=== PATIENT | female | born 1980 | race Caucasian/White ===

== ENCOUNTER 2018-08-29 07:11 | Inpatient (IN) ==
[2018-08-29] MEDS ORDERED: KETOROLAC TROMETHAMINE 15 MG/ML VIAL IV STA (07:38)
[2018-08-29] MEDS ORDERED: ONDANSETRON INJ 2 MG/ML 2 ML VIAL IV STA (07:38)
[2018-08-29] MEDS ORDERED: SODIUM CHLORIDE 0.9% 1000ML 1,000 ML IV ONE ×2 (07:38→09:37)
--- NOTE | 2018-08-29 07:52 | Emergency Department Note ---
ED Provider Note CHIEF COMPLAINT: Epigastric/upper abdominal pain, nausea and vomiting HISTORY OF PRESENTING ILLNESS: This is a 37-year-old female who presents to the emergency department via EMS with concern for right upper quadrant and epigastric pain, nausea and vomiting that started yesterday. Patient states she began with gradual onset of the abdominal pain that has gotten progressively worse, is constant and radiates into her mid back, and she rates as 10/10. She developed nausea with vomiting during the night, states she has vomited numerous times and is vomiting up yellow slime. She denies any bloody or coffee-ground emesis. She denies any diarrhea. She denies any recent fevers or chills. She received 100 mcg of fentanyl and 4 mg of Zofran IV, and states that she has not had any improvement in her symptoms with this. She reports a history of "gallbladder problems and pancreatitis" in the past. She denies alcohol use. She is on Suboxone for history of opioid use. She denies any other symptoms of chest pain, shortness of breath, dizziness or syncope, back pain, headaches, vision changes, neck pain, urinary complaints, or unusual rash. REVIEW OF SYSTEMS: A complete 10 point review of systems was reviewed with the patient with pertinent positives and negatives as per history of present illness. All else were negative. PAST MEDICAL HISTORY: Hypertension, opioid use on Suboxone SOCIAL HISTORY: Lives at home, she is a current everyday smoker, denies alcohol ALLERGIES: No known allergies PHYSICAL EXAM: CONSTITUTIONAL: Pleasant and cooperative. Nontoxic-appearing and in no acute distress, but appears uncomfortable. Moderately dehydrated. HEENT: Normocephalic, atraumatic. PERRL, EOMI. Pharynx normal. Dry mucous mem ories. NECK: Supple, full active range of motion without discomfort. RESPIRATORY: Clear to auscultation bilaterally with no wheezing, crackles, rhonchi or stridor. Equal expansion bilaterally. CARDIOVASCULAR: Regular rate and rhythm with no murmurs, rubs or gallops. Normal peripheral perfusion. No edema. GASTROINTESTINAL: Diffuse tenderness through the upper abdomen, most tender in the epigastric region. No rebound tenderness or guarding. Soft and nondistended. No palpable masses or HSM. Bowel sounds present in all quadrants. No CVA tenderness bilaterally. MUSCULOSKELETAL: Full range of motion of all joints without discomfort. INTEGUMENTARY: No rash or other significant dermatologic conditions noted. NEUROLOGIC: Alert and oriented X 4 with normal affect. Normal strength and sensation in all 4 extremities. Normal speech. Normal gait observed. ED COURSE AND MEDICAL DECISION MAKING: CC: Patient presenting with complaint of epigastric/upper abdominal pain, nausea and vomiting DIFFERENTIAL DIAGNOSIS: Includes, but not limited to gastroenteritis, gastritis, peptic ulcer disease, cholecystitis, cholelithiasis, pancreatitis, dehydration, electrolyte abnormality INTERPRETATION OF LABS: No leukocytosis, no anemia, normal platelets, no significant electrolyte abnormalities, normal renal function, normal liver enzymes, significantly elevated lipase. Serum hCG negative. IMAGING: US gallbladder CLINICAL HISTORY: Right upper quadrant pain. Nausea, vomiting. COMPARISON STUDY: No previous studies for comparison. FINDINGS: The pancreatic duct is at the upper limits of normal measuring 3 mm. The pancreatic masses are visualized. No hepatic masses are visualized. There is no right-sided hydronephrosis. No gallstones are visualized. There is no gallbladder wall thickening, and no pericholecystic fluid. There is no ductal dilatation. The common bile duct measures 6 mm. There is slight increase in hepatic echogenicity. Hepatic steatosis must be considered. IMPRESSION: 1. Sonographically normal gallbladder. No ductal dilatation 2. Slight increase in hepatic echogenicity, a finding raising the possibility of hepatic steatosis MEDICATION RECONCILIATION: I attest that I have personally reviewed the patient's current medication list. INITIAL VITAL SIGNS REVIEW: I reviewed the patient's initial vital signs and interpret them as follows: T: Afebrile; BP: Normotensive; HR: Mildly tachycardic; RR: Within normal limits; Pulse Ox: Within normal limits on room air. Blood pressure screening: The patient was found to have normal blood pressure on screening and does not require follow-up for repeat blood pressure check. MDM SUMMARY: Patient was evaluated at bedside, history and physical exam performed. Patient is alert and oriented, in no acute distress, but appears uncomfortable, resting in the stretcher. She is afebrile and nontoxic-appearing, but does appear to be moderately dehydrated and is mildly tachycardic. She is tenderness throughout the upper abdomen, most tender in the epigastric region. No acute abdomen. Orders were placed at bedside for labs, IV fluid bolus for hydration, IV Toradol for pain, IV Zofran for nausea, right upper quadrant ultrasound to evaluate for gallbladder disease. Patient discussed with Dr. Fuller, who agrees with my assessment, plan, and disposition. Labs and imaging reviewed as above, labs are fairly unremarkable, but she does have significantly elevated lipase concerning for acute pancreatitis. Ultr asound of the gallbladder does not show any evidence of cholecystitis or cholelithiasis. Patient reassessed multiple times throughout ED stay, she has remained hemodynamically stable, but continues to complain of severe pain and nausea and has required numerous doses of IV pain medications and antiemetics. She has not been able to tolerate fluids. I discussed the option of admission with the patient, she states that she does not feel that she can go home like this. I spoke on the phone with Dr. Hawk, [facility] Hospitalist, who agrees to evaluate the patient for admission. Patient was updated on all results and plan for admission, she verbalized understanding and was agreeable to this plan. The patient was stable at time of admission. The chart was completed utilizing [employer] Speech voice recognition software. Grammatical errors, random word insertions, pronoun errors, and incomplete sentences are an occasional consequence of this system due to software limitations, ambient noise, and hardware issues. Any formal questions or concerns about the content, text, or information contained within the body of this dictation should be directly addressed to the nurse practitioner for clarification. 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 Beliefs That Will Affect Care: None Current Living Situation: Spouse Other Information That Helps Us Care for You: No Feels Safe at Home: Yes Safety Concerns: Feels Safe At This Time Smoking Status: Current every day smoker Tobacco Type: cigarettes Do You Dip or Chew Tobacco: No Second Hand Exposure: No Tobacco Cessation Education Requested by Patient: No Hx Alcohol Use: No Hx Substance Use: Yes substance use type: opiates Substance Use Type Other:: on suboxone therapy Last Used Substance: Unknown Results & Data Vital Signs Vital Signs - 24 hr 08/29/18 07:20 08/29/18 09:23 Temperature 36.8 C Temperature Source Oral Sepsis Recent Fever Within 48 Hours No Sepsis New/Unexplained Change in Mental Status No Sepsis Action Taken by Nursing No Action Required Pulse Rate 98 H Pulse Rate [Left] 78 Pulse Rhythm Regular Pulse Rhythm [Left] Regular Pulse Strength Normal Pulse Strength [Left] Normal Respiratory Rate 18 18 Respiratory Effort / Characteristics Non-Labored Spontaneous Non-Labored Spontaneous Respiratory Depth Normal Normal Respiratory Pattern Regular Regular Blood Pressure 110/80 Blood Pressure [Left Arm] 95/81 L Blood Pressure Mean 90 Blood Pressure Mean [Left Arm] 85 Blood Pressure Position Lying Blood Pressure Position [Left Arm] Lying Pulse Oximetry 99 98 Oxygen Delivery Method Room Air Room Air Laboratory Data Result diagrams: 08/29/18 08:09 08/29/18 08:09 Lab Results 08/29/18 08/29/18 08/29/18 Range/Units 08:09 08:09 08:09 WBC 6.60 (4.8-10.8) K/uL RBC 4.10 L (4.2-5.4) M/uL Hgb 13.8 (12.0-16.0) g/dL Hct 40.4 (37-47) % MCV 98.5 (80-100) fL MCH 33.7 (25-34) pg MCHC 34.2 (32-36) g/dL RDW Std Deviation 45.3 (36.4-46.3) fL RDW Coeff of Ishmael 12.6 (11.5-14.5) % Plt Count 195 (130-400) K/uL MPV 8.9 (7.4-10.4) fL Immature Gran % (Auto) 0.0 % Neut % (Auto) 75.2 % Lymph % (Auto) 12.0 % [place] % (Auto) 12.4 % Eos % (Auto) 0.2 % Baso % (Auto) 0.2 % Immature Gran # (Auto) 0.00 (0.00-0.02) K/uL Neut # (Auto) 4.97 (1.4-6.5) K/uL Lymph # (Auto) 0.79 L (1.2-3.4) K/uL [place] # (Auto) 0.82 H (0.11-0.59) K/uL Eos # (Auto) 0.01 (0-0.5) K/uL Baso # (Auto) 0.01 (0-0.2) K/uL PT (9.0-12.0) Seconds INR (0.9-1.1) APTT (21.0-31.0) Seconds PTT Ratio Sodium 137 (136-145) mmol/L Potassium 3.5 (3.5-5.1) mmol/L Chloride 102 (98-107) mmol/L Carbon Dioxide 22 (21-32) mmol/L Anion Gap 12.0 H (3-11) BUN 9 (7-18) mg/dl Creatinine 0.58 L (0.6-1.2) mg/dl Est Cr Clr Drug Dosing 148.9 ml/min Est GFR ( Amer) 135.5 Est GFR (Non-Af Amer) 116.9 BUN/Creatinine Ratio 14.7 (10-20) Glucose 131 H (70-99) mg/dl Calcium 10.0 (8.5-10.1) mg/dl Total Bilirubin 0.6 (0.2-1) mg/dl AST 77 H (15-37) U/L ALT 57 (12-78) U/L Alkaline Phosphatase 108 (45-117) U/L Total Protein 7.5 (6.4-8.2) gm/dl Albumin 4.0 (3.4-5.0) gm/dl Globulin 3.5 (2.5-4.0) gm/dl Albumin/Globulin Ratio 1.1 (0.9-2) Triglycerides (0-150) mg/dl Lipase 3774 H (73-393) U/L HCG, Qual Negative (Negative) 08/29/18 08/29/18 Range/Units 08:09 08:12 WBC (4.8-10.8) K/uL RBC (4.2-5.4) M/uL Hgb (12.0-16.0) g/dL Hct (37-47) % MCV (80-100) fL MCH (25-34) pg MCHC (32-36) g/dL RDW Std Deviation (36.4-46.3) fL RDW Coeff of Ishmael (11.5-14.5) % Plt Count (130-400) K/uL MPV (7.4-10.4) fL Immature Gran % (Auto) % Neut % (Auto) % Lymph % (Auto) % [place] % (Auto) % Eos % (Auto) % Baso % (Auto) % Immature Gran # (Auto) (0.00-0.02) K/uL Neut # (Auto) (1.4-6.5) K/uL Lymph # (Auto) (1.2-3.4) K/uL [place] # (Auto) (0.11-0.59) K/uL Eos # (Auto) (0-0.5) K/uL Baso # (Auto) (0-0.2) K/uL PT 11.1 (9.0-12.0) Seconds INR 1.1 (0.9-1.1) APTT 26.0 (21.0-31.0) Seconds PTT Ratio 1.0 Sodium (136-145) mmol/L Potassium (3.5-5.1) mmol/L Chloride (98-107) mmol/L Carbon Dioxide (21-32) mmol/L Anion Gap (3-11) BUN (7-18) mg/dl Creatinine (0.6-1.2) mg/dl Est Cr Clr Drug Dosing ml/min Est GFR ( Amer) Est GFR (Non-Af Amer) BUN/Creatinine Ratio (10-20) Glucose (70-99) mg/dl Calcium (8.5-10.1) mg/dl Total Bilirubin (0.2-1) mg/dl AST (15-37) U/L ALT (12-78) U/L Alkaline Phosphatase (45-117) U/L Total Protein (6.4-8.2) gm/dl Albumin (3.4-5.0) gm/dl Globulin (2.5-4.0) gm/dl Albumin/Globulin Ratio (0.9-2) Triglycerides 130 (0-150) mg/dl Lipase (73-393) U/L HCG, Qual (Negative) Administered Medications Dextrose/Lactated Ringer's (D5w And Lactated Ringers) 1,000 mls @ 150 mls/hr IV .Q6H40M DONALDO Stop: 08/30/18 21:20 Last Admin: 08/29/18 12:49 Dose: 150 mls/hr Documented by: [id number] Discontinued Medications Hydromorphone HCl (Dilaudid) Confirm Administered Dose 1 mg .ROUTE .STK-MED ONE Stop: 08/29/18 12:31 Last Admin: 08/29/18 12:33 Dose: 1 mg Documented by: [id number] Sodium Chloride (Nss 1000ml) 1,000 mls @ 999 mls/hr IV .Q1H1M ONE Stop: 08/29/18 08:38 Last Infusion: 08/29/18 09:06 Dose: 0 mls/hr Documented by: [id number] Admin: 08/29/18 07:58 Dose: 999 mls/hr Documented by: [id number] Promethazine HCl (Phenergan) 25 mg in 51 mls @ 204 mls/hr IV NOW STA Stop: 08/29/18 09:51 Last Infusion: 08/29/18 10:03 Dose: 0 mls/hr Documented by: [id number] Admin: 08/29/18 09:48 Dose: 204 mls/hr Documented by: [id number] Sodium Chloride (Nss 1000ml) 1,000 mls @ 999 mls/hr IV .Q1H1M ONE Stop: 08/29/18 10:37 Last Infusion: 08/29/18 10:57 Dose: 0 mls/hr Documented by: [id number] Admin: 08/29/18 09:47 Dose: 999 mls/hr Documented by: [id number] Ketorolac Tromethamine (Toradol) 15 mg IV NOW STA Stop: 08/29/18 07:39 Last Admin: 08/29/18 07:59 Dose: 15 mg Documented by: [id number] Morphine Sulfate (Morphine Sulfate) 6 mg IV NOW STA Stop: 08/29/18 09:38 Last Admin: 08/29/18 09:47 Dose: 6 mg Documented by: [id number] Ondansetron HCl (Zofran) 4 mg IV NOW STA Stop: 08/29/18 07:39 Last Admin: 08/29/18 07:59 Dose: 4 mg Documented by: [id number] Ondansetron HCl (Zofran) Confirm Administered Dose 4 mg .ROUTE .STK-MED ONE Stop: 08/29/18 12:32 Last Admin: 08/29/18 12:34 Dose: 4 mg Documented by: [id number] Discharge Plan Visit Data *Final* Discharge Date/Time: 08/29/18 11:55 Chief Complaint: Abdominal Pain Stated Complaint: abd pain ED Provider: Alex Fuller ED Midlevel Provider: Katerina Olivares Discharge Problem: Pancreatitis Patient Disposition: Admitted As Inpatient Condition: Good Discharge Instructions Interventions: ED Discharge Assessment Last Done: 08/29/18 11:55
[2018-08-29 08:22] LABS: Basophils # (auto) 0.01 K/uL (0-0.2); Basophils % (auto) 0.2 %; Eosinophils # (auto) 0.01 K/uL (0-0.5); Eosinophils % (auto) 0.2 %; Hematocrit (blood only) 40.4 % (37-47); Hemoglobin 13.8 g/dL (12.0-16.0); Lymphocytes # (auto) 0.79 K/uL (1.2-3.4); Mean Corpuscular Hgb Conc 34.2 g/dL (32-36); Mean Corpuscular Volume 98.5 fL (80-100); Mean Platelet Volume 8.9 fL (7.4-10.4); Monocytes # (auto) 0.82 K/uL (0.11-0.59); Monocytes % (auto) 12.4 %; Neutrophils # (auto) 4.97 K/uL (1.4-6.5); Neutrophils % (auto) 75.2 %; Platelet Count 195 K/uL (130-400); RDW Coefficient of Variation 12.6 % (11.5-14.5); RDW Standard Deviation 45.3 fL (36.4-46.3)
[2018-08-29 08:39] LABS: BUN Creatinine Ratio 14.7 (10-20); Creatinine Clr Calc Pharmacy 148.9 ml/min; Est GFR (African American) 135.5; Est GFR (Non-African American) 116.9; Potassium 3.5 mmol/L (3.5-5.1)
[2018-08-29 08:42] LABS: Albumin Globulin Ratio 1.1 (0.9-2); Bilirubin,Total 0.6 mg/dl (0.2-1); Globulin 3.5 gm/dl (2.5-4.0); Total Protein 7.5 gm/dl (6.4-8.2)
[2018-08-29 08:46] LABS: Pregnancy Test, Serum Negative (Negative)
--- NOTE | 2018-08-29 08:54 | Ultrasound Report ---
US gallbladder CLINICAL HISTORY: Right upper quadrant pain. Nausea, vomiting. COMPARISON STUDY: No previous studies for comparison. FINDINGS: The pancreatic duct is at the upper limits of normal measuring 3 mm. The pancreatic masses are visualized. No hepatic masses are visualized. There is no right-sided hydronephrosis. No gallston es are visualized. There is no gallbladder wall thickening, and no pericholecystic fluid. There is no ductal dilatation. The common bile duct measures 6 mm. There is slight increase in hepatic echogenic ity. Hepatic steatosis must be considered. IMPRESSION: 1. Sonographically normal gallbladder. No ductal dilatation 2. Slight increase in hepatic echogenicity, a finding raising the possibility of hepatic steatosis Electronically signed by: Nabil Morelos M.D. 08/29/2018 8:53 AM
[2018-08-29] MEDS ORDERED: MoRPHine SULFATE 10 MG/ML CARP/VIAL IV STA (09:37)
[2018-08-29] MEDS ORDERED: PROMETHAZINE 25 MG/51 ML BAG IV STA (09:37)
--- NOTE | 2018-08-29 10:33 | History & Physical Report ---
Date of Service August 29, 2018 Assessment & Plan (1) Pancreatitis: 37 y/o F Hx HTN, opiate abuse, one episode of pancreatitis 2014. Presents with severe abdominal pain in both upper quadrants, R > L, radiating around to her back and accompanied by nausea and vomiting. She has not had fevers, rigors or diarrhea. An abdominal US was unremarkable aside from hepatic steatosis. Initial labs are notable for an elevated lipase. 1) Pancreatitis - NPO, IVF, pain control. We will check a triglyceride level due to her hepatic steatosis. As she examines as cholecystitis, we will consult GI. An MRCP may be merited. 2) Prior opiate abuse - cont daily Subutex dose. 3) HTN - cont Metoprolol. 4) The pt is aware that smoking is detrimental to her health and has been trying to quit. Full code - Lovenox prophylaxis Total time for this admit including review of labs, meds, imaging, records - discussion with pt and ER attending - 36 min Present on Admission?: Yes History of Present Illness Chief Complaint: Abdominal pain, nausea, vomiting x 2 days. Primary Care Provider: NO PCP 37 y/o F Hx HTN, opiate abuse, one episode of pancreatitis 2014. Presents with severe abdominal pain in both upper quadrants, R > L, radiating around to her back and accompanied by nausea and vomiting. She has not had fevers, rigors or diarrhea. An abdominal US was unremarkable aside from hepatic steatosis. Initial labs are notable for an elevated lipase. PMH: 1) Opiate abuse - she has been taking Subutex for 5 years and denies any relapses since 2) Pancreatitis 2014 - suspected due to choledocholithiasis 3) Smoker Surgical: C section x 2 Social: Stays at home with 2 small children currently. Smokes 5 cigarettes daily. Rarely drinks. Family: Reports parents are alive and well. No significant family history. 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 Beliefs That Will Affect Care: None Current Living Situation: Spouse Other Information That Helps Us Care for You: No Feels Safe at Home: Yes Safety Concerns: Feels Safe At This Time Smoking Status: Current every day smoker Tobacco Type: cigarettes Do You Dip or Chew Tobacco: No Second Hand Exposure: No Tobacco Cessation Education Requested by Patient: No Hx Alcohol Use: No Hx Substance Use: Yes substance use type: opiates Substance Use Type Other:: on suboxone therapy Last Used Substance: Unknown Review of Systems Review of Systems: Gen: Denies fevers, night sweats, rigors, fatigue, malaise, weight loss/gain ENT: Denies congestion, throat pain, hearing loss Eyes: Denies acute visual changes CV: Denies CP, palpitations Pulmonary: Denies SOB, cough, wheezing GI: Abdominal pain, nausea and vomiting as above Neuro: Denies acute or unilateral weakness, acute gait impairment, headache or acute visual changes Musculoskeletal: Denies joint pain, inflammation Endocrine: Denies polydipsia, polyuria Skin: Denies acute rashes or ulcers Physical Exam Physical Exam: General: AAO x 3, no distress ENT: No erythema or exudates, no thrush Eyes: MICHAEL, EOMI Head and neck: Normocephalic, atraumatic, No JVD, neck is supple. Chest/heart: Nontender, S1,2, RRR, no murmurs, no gallops Lungs: CTAB, no wheezing or crackles Abdomen: Upper quadrant tenderness - mostly in the RUQ - no guarding Neuro: AAO x 3, speech is clear, no unilateral weakness or loss of sensation, coordination intact Musculoskeletal: No joint inflammation, muscle tenderness, FROM Skin: No acute rashes or ulcers Extremities: No clubbing, cyanosis, edema Results & Data Vital Signs (Past 12 Hours) Vital Signs Temp Pulse Pulse Resp BP BP Pulse Ox 08/29/18 09:23 78 18 95/81 L 98 08/29/18 07:20 98.2 F 98 H 18 110/80 99 Diagnostic Findings US: 1. Sonographically normal gallbladder. No ductal dilatation 2. Slight increase in hepatic echogenicity, a finding raising the possibility of hepatic steatosis PG Care Time/CCT Total # of Minutes Spent Total Time Spent with Patient: Total time spent is greater than 50% in coordination of care (as documented) at patient's floor/unit and/or counseling patient:
[2018-08-29] MEDS ORDERED: MAGNESIUM HYDROXIDE SUSP 30 ML UDC PO PRN (12:01)
[2018-08-29] MEDS ORDERED: ZOLPIDEM TARTRATE 5 MG TAB PO PRN (12:01)
[2018-08-29] MEDS ORDERED: ACETAMINOPHEN 325 MG TAB PO PRN (12:01)
[2018-08-29] MEDS ORDERED: POLYETHYLENE (MIRALAX) 17 GM PACK PO PRN (12:01)
[2018-08-29] MEDS ORDERED: ALUMINUM/MAGNESIUM SUSP 30 ML UDC PO PRN (12:01)
[2018-08-29] MEDS ORDERED: HYDROmorphone INJ 1 MG/ML SYRINGE ONE (12:30)
[2018-08-29] MEDS ORDERED: ONDANSETRON INJ 2 MG/ML 2 ML VIAL ONE (12:31)
[2018-08-29] MEDS: D5W AND LACTATED RINGERS 1,000 ML IV SCH ×2 (12:49→20:02)
[2018-08-29 13:09] LABS: INR 1.1 (0.9-1.1); Prothrombin Time 11.1 Seconds (9.0-12.0)
[2018-08-29] MEDS: HYDROmorphone INJ 1 MG/ML SYRINGE IV PRN ×3 (15:53→23:52)
[2018-08-29] MEDS: ONDANSETRON INJ 2 MG/ML 2 ML VIAL IV PRN ×2 (15:54→23:52)
[2018-08-29] MEDS ORDERED: LACTATED RINGER'S 250 ML IV ONE (16:57)
--- NOTE | 2018-08-29 20:05 | Magnetic Resonance Report ---
MRCP CLINICAL HISTORY: Recurrent pancreatitis. COMPARISON STUDY: Abdominal ultrasound dated 08/29/2018. TECHNIQUE: Abdominal MRCP is performed utilizing various T2-weighted sequences in the axial and coron al planes. IV contrast was not administered for this examination. 3-D reformats are created and asses sed. FINDINGS: The gallbladder is normal in appearance. No gallstones are identified. There is no intra or extrahepa tic biliary ductal dilatation. The common bile duct measures up to 5 mm. There are no filling defects to indicate choledocholithiasis. The pancreatic duct is normal in caliber. The pancreatic duct in th e region of the pancreatic head is not well-visualized and the exact anatomy cannot be delineated. The pancreas appears mildly enlarged and edematous. There is peripancreatic stranding and fluid consi stent with the reported history of acute pancreatitis. No organized fluid collection is identified. T here is a small volume of upper abdominal ascites. The liver is enlarged and steatotic. The spleen, a drenal glands, and kidneys are normal as imaged. The abdominal aorta is normal in caliber. There is n o evidence of bowel obstruction. There is no pleural effusion. IMPRESSION: 1. No gallstones are identified. There is no intra or extrahepatic biliary ductal dilatation, and no evidence of choledocholithiasis. 2. Findings are consistent with acute pancreatitis. 3. The pancreatic duct is normal in caliber. The pancreatic duct in the region pancreatic head is not visualized and ductal anatomy cannot be assessed. Electronically signed by: Raul Nicholas M.D. 08/29/2018 8:03 PM
[2018-08-29] MEDS: METOPROLOL SUCC 25MG EXT REL TAB PO SCH (21:04)
[2018-08-29] MEDS: ENOXAPARIN INJ 40 MG/0.4 ML SYR SQ SCH (21:04)
--- NOTE | 2018-08-29 23:13 | Consultation Report ---
DATE OF CONSULTATION: 08/29/2018 GASTROENTEROLOGY CONSULTATION RACE: . ATTENDING PHYSICIAN: Dr. Tez Patel CONSULTING PHYSICIAN: Juan Clayton DO REASON FOR CONSULTATION: Pancreatitis. HISTORY OF PRESENT ILLNESS: Jaja Gao is a 37-year-old female who presented to the Department of Emergency Medicine today with complaints of severe midepigastric abdominal pain rated as a 7/10 to 8/10 in intensity, radiating to her back. She had associated nausea as well as vomiting, stating that she had vomited multiple times over the past 24 hours. She also stated that her symptoms were progressively worse, prompting her to contact EMS who brought her to the ER. Upon arrival to the Department of Emergency Medicine, she was noted to have a slightly elevated AST of 77, an ALT of 57, an alkaline phosphatase of 108, and a total bilirubin of 0.6. Her lipase level was 3774. She did undergo right upper quadrant ultrasound in the Department of Emergency Medicine and was noted to have a sonographically normal gallbladder with no ductal dilatation. There was a slight increase in hepatic echogenicity raising the possibility of hepatic steatosis. The common bile duct measured 6 mm. Of interest, the patient states that approximately 3-1/2 years ago following the of one of her children, she did have an episode of gallstone-induced pancreatitis. She states that she was never given the option to undergo a cholecystectomy at that time and she states that she was hospitalized for approximately 5 days during that acute illness. She states that she has had no other episodes of acute pancreatitis since that time. She denies excessive alcohol use, though she did admit to drinking approximately 3-4 alcoholic beverages on Sunday night, which was 3 days prior to her admission. She does smoke approximately a quarter pack of cigarettes a day, though denies any illicit drug use. 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 PAST SURGICAL HISTORY: Includes x2. ALLERGIES: None. MEDICATIONS: At the present time include lactated Ringer's at 150 mL per hour, Lovenox 40 mg subQ at bedtime, metoprolol 12.5 mg p.o. b.i.d., and Subutex 8 mg sublingual daily. She does have multiple p.r.n. medications including narcotic analgesics, antiemetics and MiraLax as well. SOCIAL HISTORY: She is . She denies any illicit drug use, but does admit to social alcohol use and smokes 5 cigarettes per day and has a [id number] history of smoking. FAMILY HISTORY: Negative for GI malignancy or inflammatory bowel disease. She also denies any family history of pancreatic cancer or history of pancreatitis. REVIEW OF SYSTEMS: Negative x12 system review. PHYSICAL EXAMINATION: VITAL SIGNS: Include a temp of 36.9, pulse 71, respirations 20, blood pressure 138/88, pulse ox 92% on room air. GENERAL: She is awake, cooperative, in mild distress. HEAD: Normocephalic, atraumatic. EYES: Pupils equal and round. Extraocular muscles are intact. Sclerae are nonicteric. ENT: External evaluation of the ears and nose are normal. Oropharynx is clear. NECK: Soft and supple. There is no JVD or lymphadenopathy. CHEST: Clear to auscultation bilaterally. CARDIOVASCULAR SYSTEM: Regular rate and rhythm. ABDOMEN: Soft, tender in the mid epigastric area and throughout. Nondistended. There are positive bowel sounds. There is no obvious hepatosplenomegaly. EXTREMITIES: No clubbing, cyanosis, or edema. SKIN: Soft, pink. Good turgor. LABORATORY STUDIES AND RADIOGRAPHIC STUDIES: Were reviewed in the HPI. IMPRESSION: This is a 37-year-old female with idiopathic pancreatitis at present. Differential diagnoses in this patient would include: 1. Gallstone-induced pancreatitis. 2. Medication-induced pancreatitis. 3. Alcohol-induced pancreatitis. 4. Viral-induced pancreatitis. 5. Idiopathic. PLAN: At the present time, I would recommend that the patient be continued on IV fluids with lactated Ringer's at 150 mL per hour. I will recommend an additional 1 L bolus of Lactated Ringer's now, to aid in Pancreatic perfusion. I would recommend narcotic analgesic use as needed as well as antiemetic use as needed. I will keep her n.p.o. at the present time. I will check an MRCP to ensure that there is no evidence of gallstone-induced disease. I will follow her clinical course and make further recommendations as needed. Once again, thank you for allowing me to participate in the care of this patient. If you have any further questions, please do not hesitate in contacting me. JOSY
[2018-08-29 23:57] LABS: Appearance Urine Clear (Clear); Bacteria Urine Automated Negative (Negative); Bilirubin Urine Negative (Negative); Blood Urine Negative (Negative); Color Urine Dark Yellow; Epithelial Cell Urine Auto >30 /lpf (0-5); Glucose Urine UA Trace (Negative); Leukocyte Esterase Urine Negative (Negative); Nitrite Urine Negative (Negative); Protein Urine Trace (Negative); Specific Gravity Urine 1.028 (1.000-1.030); Urobilinogen Urine Negative (Negative); pH Urine 6.5 (4.5-7.5)
[2018-08-30 00:15] LABS: Ketones Urine 4+ (Negative)
[2018-08-30] MEDS: D5W AND LACTATED RINGERS 1,000 ML IV SCH ×3 (02:30→22:28)
[2018-08-30] MEDS ORDERED: PROMETHAZINE HCL 12.5 MG in SODIUM CHLORIDE 0.9% 50 ML IV STA (02:38)
[2018-08-30] MEDS: HYDROmorphone INJ 1 MG/ML SYRINGE IV PRN ×7 (02:58→23:45)
[2018-08-30 06:01] LABS: Basophils # (auto) 0.01 K/uL (0-0.2); Basophils % (auto) 0.1 %; Hematocrit (blood only) 36.4 % (37-47); Hemoglobin 12.3 g/dL (12.0-16.0); Immature Granulocytes # (auto) 0.02 K/uL (0.00-0.02); Immature Granulocytes % (auto) 0.2 %; Lymphocytes # (auto) 1.04 K/uL (1.2-3.4); Lymphocytes % (auto) 10.4 %; Mean Corpuscular Hgb Conc 33.8 g/dL (32-36); Mean Corpuscular Volume 97.8 fL (80-100); Mean Platelet Volume 8.7 fL (7.4-10.4); Monocytes # (auto) 1.23 K/uL (0.11-0.59); Monocytes % (auto) 12.3 %; Neutrophils # (auto) 7.71 K/uL (1.4-6.5); Platelet Count 179 K/uL (130-400); RDW Coefficient of Variation 12.7 % (11.5-14.5); RDW Standard Deviation 45.5 fL (36.4-46.3); Red Blood Count 3.72 M/uL (4.2-5.4); White Blood Count 10.01 K/uL (4.8-10.8)
[2018-08-30 06:38] LABS: Calcium 8.6 mg/dl (8.5-10.1); Creatinine Clr Calc Pharmacy 159.9 ml/min; Est GFR (African American) 138.7; Est GFR (Non-African American) 119.7; Magnesium 1.5 mg/dl (1.8-2.4); Potassium 3.2 mmol/L (3.5-5.1)
[2018-08-30] MEDS: METOPROLOL SUCC 25MG EXT REL TAB PO SCH ×2 (08:32→21:43)
[2018-08-30] MEDS: ONDANSETRON INJ 2 MG/ML 2 ML VIAL IV PRN (08:43)
[2018-08-30] MEDS ORDERED: BUPRENORPHINE HCL 8 MG SUBL SL SCH (09:00)
--- NOTE | 2018-08-30 09:26 | Gastroenterology Progress Note ---
Date of Service August 30, 2018 Assessment & Plan (1) Pancreatitis: 1) NPO 2) Aggressive IV fluid hydration 3) Pain control 4) Anti-emetics & supportive care per primary team. This is patient's second episode of idiopathic pancreatitis. Consider EUS as outpatient. Thank you for allowing us to participate in the care of this patient. If you should have any further questions or concerns, do not hesitate to contact us. Present on Admission?: Yes Supervising Physician Co-Signing Physician Notes Agree with MIKAELA Ballesteros as above Abd: Soft, tender throughout, ND, +BS Continue supportive care at this time MRCP negative for gallstone/choledocholithiasis Subjective Patient is a 37 yo female who is hospitalized for pancreatitis. She reports epigastric abdominal pain with radiation to the back. She reports she tried to take sips of water but was unable to tolerate it. She has been using ice chips. She denies vomiting, heartburn, reflux, or diarrhea. She offers no new complaints today. Lipase on 08/29 was >3,000. She had an MRCP on 08/29 that indicated acute pancreatitis but no concern for ductal abnormalities/stones. Review of Systems Constitutional: no fever and no chills Respiratory: no cough Cardiovascular: no chest pain Gastrointestinal: + abdominal pain Musculoskeletal: no back pain Integumentary: no rash Neurologic: no dizziness Endocrine: + fatigue Physical Exam Constitutional: WD/WN, vitals as above Eyes: PERRL, conjunctivae normal, anicteric sclerae Respiratory: normal respiratory effort Cardiovascular: Rate/Rhythm: regular rate and regular rhythm Gastrointestinal (Abdomen): Percussion/Palpation: + abdomen tender Psychiatric: Orientation: alert and oriented x 3 Results & Data Vital Signs (Past 12 Hours) Vital Signs Temp Pulse Resp BP Pulse Ox 08/30/18 07:24 37.1 C 74 16 136/96 98 08/29/18 23:20 37 C 70 18 134/88 98 (1) Pancreatitis Acute pancreatitis complication: unspecified Chronicity: acute Pancreatitis type: unspecified pancreatitis type Qualified Code(s): K85.90 - Acute pancreatitis without necrosis or infection, unspecified
[2018-08-30] MEDS: PROMETHAZINE HCL 12.5 MG in SODIUM CHLORIDE 0.9% 50 ML IV PRN ×2 (10:43→18:29)
[2018-08-30] MEDS ORDERED: MAGNESIUM SULFATE / D5W 1 GM/100 ML BAG IV ONE (11:45)
--- NOTE | 2018-08-30 12:51 | Hospitalist Progress Note ---
Date of Service August 30, 2018 Assessment & Plan (1) Pancreatitis: - This is the second occurrence of pancreatitis - reports initial episode was after and thought to be related to gallstone pancreatitis; she does endorse some ETOH consumption on Sunday but not chronic use and also states she had a lot of cherries which resulted in diarrhea before the abdominal pain started - MRCP negative for choledocholithiasis; U/S negative other than hepatic steatosis - Check lipid panel in AM given steatosis - NPO except sips/chips - as better tolerance of sips can advance to clears; Aggressive hydration with LR at 150 mL/hr and replete electrolytes as needed; Pain medication and anti-emetics - GI consulted - appreciate input - consideration for outpatient EUS (2) Opiate addiction: - Continue Buprenorphine daily (3) Essential hypertension: - Toprol XL 12.5 mg BID if tolerable - can hold if GI upset and monitor for any rebound issues (4) DVT prophylaxis: - Lovenox Disposition: D/C pending diet tolerance and pain control Subjective Reports feeling slightly better today compared to yesterday but only tolerating ice chips. Pain is still b/l upper quadrants which wraps around the back. Phenergan is helping with the nausea. No other acute issues at this time Review of Systems Constitutional: + anorexia; no fever and no chills Respiratory: no cough and no dyspnea Cardiovascular: no chest pain, no palpitations, no lightheadedness and no edema Gastrointestinal: + abdominal pain and + nausea; no vomiting, no constipation and no diarrhea/loose stools Genitourinary: no dysuria Musculoskeletal: no body aches Integumentary: no rash Physical Exam Constitutional: WD/WN, vitals as above no acute distress and not ill appearing ENMT: Ears: no hearing impairment Neck: normal visual inspection and trachea midline Respiratory: normal respiratory effort, lungs clear to auscultation Cardiovascular: RRR, no murmur, no edema Gastrointestinal (Abdomen): Inspection/Auscultation: abdomen not distended and + abnormal bowel sounds (hypoactive) Percussion/Palpation: + abdomen tender and abdomen soft; no guarding and abdomen not rigid Musculoskeletal: Head/Neck/Chest: normocephalic, head atraumatic and neck supple Skin: no rashes, warm and dry Neurologic: moves all extremities Psychiatric: A+Ox3, euthymic affect Results & Data Vital Signs (Past 12 Hours) Vital Signs Temp Pulse Resp BP Pulse Ox 08/30/18 07:24 37.1 C 74 16 136/96 98 PG Care Time/CCT Total # of Minutes Spent Total Time Spent with Patient: Total time spent is greater than 50% in coordination of care (as documented) at patient's floor/unit and/or counseling patient: (1) Pancreatitis Acute pancreatitis complication: unspecified Chronicity: acute Pancreatitis type: unspecified pancreatitis type Qualified Code(s): K85.90 - Acute pancreatitis without necrosis or infection, unspecified
[2018-08-30] MEDS: POTASSIUM CHLORIDE / WTR 10 MEQ/100 ML PLCT IV SCH ×2 (13:45→16:15)
[2018-08-30] MEDS: ENOXAPARIN INJ 40 MG/0.4 ML SYR SQ SCH (21:44)
[2018-08-31 07:43] LABS: Hematocrit (blood only) 39.4 % (37-47); Hemoglobin 13.2 g/dL (12.0-16.0); Mean Corpuscular Hgb Conc 33.5 g/dL (32-36); Mean Corpuscular Volume 98.7 fL (80-100); Mean Platelet Volume 9.1 fL (7.4-10.4); Platelet Count 197 K/uL (130-400); RDW Coefficient of Variation 12.7 % (11.5-14.5); RDW Standard Deviation 46.1 fL (36.4-46.3); Red Blood Count 3.99 M/uL (4.2-5.4); White Blood Count 9.37 K/uL (4.8-10.8)
[2018-08-31] MEDS: PROMETHAZINE HCL 12.5 MG in SODIUM CHLORIDE 0.9% 50 ML IV PRN (07:51)
[2018-08-31] MEDS: HYDROmorphone INJ 1 MG/ML SYRINGE IV PRN ×2 (07:52→11:04)
[2018-08-31] MEDS: BUPRENORPHINE HCL 8 MG SUBL SL SCH (07:56)
[2018-08-31] MEDS: METOPROLOL SUCC 25MG EXT REL TAB PO SCH ×2 (07:56→20:38)
[2018-08-31 08:11] LABS: Albumin Level 3.1 gm/dl (3.4-5.0); BUN Creatinine Ratio 6.4 (10-20); Calcium 8.7 mg/dl (8.5-10.1); Creatinine Clr Calc Pharmacy 176.3 ml/min; Est GFR (African American) 143.2; Est GFR (Non-African American) 123.6; Potassium 3.5 mmol/L (3.5-5.1)
[2018-08-31 08:14] LABS: Albumin Globulin Ratio 0.9 (0.9-2); Bilirubin,Total 0.7 mg/dl (0.2-1); Globulin 3.4 gm/dl (2.5-4.0); Total Protein 6.5 gm/dl (6.4-8.2)
--- NOTE | 2018-08-31 10:30 | Hospitalist Progress Note ---
Date of Service August 31, 2018 Assessment & Plan (1) Pancreatitis: - This is the second occurrence of pancreatitis - reports initial episode was after and thought to be related to gallstone pancreatitis; she does endorse some ETOH consumption on Sunday but not chronic use and also states she had a lot of cherries which resulted in diarrhea before the abdominal pain started; reports last episode took approx. 5 days - MRCP negative for choledocholithiasis; U/S negative other than hepatic steatosis - Can advance to clears and monitor tolerance; Continue fluids of NSS at 125 mL/hr and replete electrolytes as needed; Pain medication and anti-emetics - GI consulted - appreciate input - consideration for outpatient EUS (2) Opiate addiction: - Stability for at least past 5 years - Continue Buprenorphine daily (3) Essential hypertension: - Toprol XL 12.5 mg BID if tolerable - can hold if GI upset and monitor for any rebound issues (4) DVT prophylaxis: - Lovenox Disposition: D/C pending diet tolerance and pain control Subjective Reports feeling a little bit better. Was able to get through the night without medications but did have increased nausea and abdominal pain this AM. Still not much of an appetite but tolerating increasing amounts of sips. Is going to try clears and instructed to go slowly. Lipase is trending down. Verbalizes no new complaints today. Review of Systems Constitutional: + anorexia; no fever and no chills Respiratory: no cough and no dyspnea Cardiovascular: no chest pain, no palpitations, no lightheadedness and no edema Gastrointestinal: + abdominal pain and + nausea; no vomiting, no constipation and no diarrhea/loose stools Genitourinary: no dysuria Musculoskeletal: + back pain Integumentary: no rash Physical Exam Constitutional: WD/WN, vitals as above no acute distress and not ill appearing ENMT: Ears: no hearing impairment Neck: normal visual inspection and trachea midline Respiratory: normal respiratory effort, lungs clear to auscultation Cardiovascular: RRR, no murmur, no edema Gastrointestinal (Abdomen): Inspection/Auscultation: abdomen not distended and + abnormal bowel sounds (hypoactive) Percussion/Palpation: + abdomen tender and abdomen soft; no guarding and abdomen not rigid Musculoskeletal: Head/Neck/Chest: normocephalic, head atraumatic and neck supple Skin: no rashes, warm and dry Neurologic: moves all extremities Psychiatric: A+Ox3, euthymic affect Results & Data Vital Signs (Past 12 Hours) Vital Signs Temp Pulse Resp BP Pulse Ox 08/31/18 07:19 37.6 C H 97 H 16 129/86 96 08/30/18 23:12 37.3 C 74 16 133/93 97 PG Care Time/CCT Total # of Minutes Spent Total Time Spent with Patient: Total time spent is greater than 50% in coordination of care (as documented) at patient's floor/unit and/or counseling patient: (1) Pancreatitis Acute pancreatitis complication: unspecified Chronicity: acute Pancreatitis type: unspecified pancreatitis type Qualified Code(s): K85.90 - Acute pancreatitis without necrosis or infection, unspecified
[2018-08-31] MEDS: SODIUM CHLORIDE 0.9% 1000ML 1,000 ML IV SCH ×2 (11:04→19:12)
[2018-08-31] MEDS: ENOXAPARIN INJ 40 MG/0.4 ML SYR SQ SCH (20:38)
[2018-09-01] MEDS: SODIUM CHLORIDE 0.9% 1000ML 1,000 ML IV SCH ×2 (02:23→10:32)
[2018-09-01 06:05] LABS: Hemoglobin 12.1 g/dL (12.0-16.0); Mean Corpuscular Hgb Conc 32.7 g/dL (32-36); Mean Corpuscular Volume 98.7 fL (80-100); Platelet Count 177 K/uL (130-400); RDW Coefficient of Variation 12.5 % (11.5-14.5); RDW Standard Deviation 45.6 fL (36.4-46.3); Red Blood Count 3.75 M/uL (4.2-5.4)
[2018-09-01 06:39] LABS: BUN Creatinine Ratio 9.7 (10-20); Calcium 7.8 mg/dl (8.5-10.1); Creatinine Clr Calc Pharmacy 183.8 ml/min; Est GFR (African American) 145.2; Est GFR (Non-African American) 125.3; Potassium 3.6 mmol/L (3.5-5.1)
[2018-09-01] MEDS: BUPRENORPHINE HCL 8 MG SUBL SL SCH (08:21)
[2018-09-01] MEDS: METOPROLOL SUCC 25MG EXT REL TAB PO SCH (08:21)
--- NOTE | 2018-09-01 18:49 | Discharge Summary ---
Date of Service September 01, 2018 Admission HPI Per Admitting Provider 37 y/o F Hx HTN, opiate abuse, one episode of pancreatitis 2015. Presents with severe abdominal pain in both upper quadrants, R > L, radiating around to her back and accompanied by nausea and vomiting. She has not had fevers, rigors or diarrhea. An abdominal US was unremarkable aside from hepatic steatosis. Initial labs are notable for an elevated lipase. PMH: 1) Opiate abuse - she has been taking Subutex for 5 years and denies any relapses since 2) Pancreatitis 2014 - suspected due to choledocholithiasis 3) Smoker Surgical: C section x 2 Social: Stays at home with 2 small children currently. Smokes 5 cigarettes daily. Rarely drinks. Family: Reports parents are alive and well. No significant family history. Principal Diagnosis Acute Pancreatitis Discharge Exam Constitutional WD/WN, vitals as above Eyes + anicteric sclerae ENMT Ears: no hearing impairment Neck normal visual inspection and trachea midline Respiratory normal respiratory effort, lungs clear to auscultation Cardiovascular RRR, no murmur, no edema Gastrointestinal (Abdomen) Inspection/Auscultation: normal bowel sounds Percussion/Palpation: abdomen soft; abdomen nontender, no guarding and abdomen not rigid Musculoskeletal no cyanosis or clubbing, extremities motor strength 5/5 Head/Neck/Chest: normocephalic and head atraumatic Skin no rashes, warm and dry Neurologic moves all extremities Psychiatric A+Ox3, euthymic affect Discharge Data Allergies Allergy/AdvReac Type Severity Reaction Status Date / Time No Known Allergies Allergy Unverified 08/29/18 07:27 Consultations 08/29/18 09:57 ED Decision to Admit Stat 08/29/18 12:01 Consult Gastroenterology Routine Ordered Studies 08/29/18 08:20 US gallbladder Routine 08/29/18 16:50 MR MRCP Routine Hospital Course (1) Pancreatitis: - This is the second occurrence of pancreatitis - reports initial episode was after and thought to be related to gallstone pancreatitis; she does endorse some ETOH consumption on Sunday but not chronic use and also states she had a lot of cherries which resulted in diarrhea before the abdominal pain started; reports last episode took approx. 5 days to resolve - MRCP negative for choledocholithiasis; U/S negative other than hepatic steatosis - Tolerating a regular low fat diet; Was aggressively hydrated and electrolytes repleted as necessary; Pain medication and anti-emetics provided - was pain free on D/C and did not require IV pain medications since previous day and could use Tylenol or Ibuprofen if mild pain would be present which is safe as she is currently still as well as to prevent relapse given her opiate abuse history - GI consulted - - consideration for outpatient EUS and office number for Dr. Clayton was provided to the patient (2) Opiate addiction: - Stability for at least past 5 years - Continue Buprenorphine daily (3) Essential hypertension: - Toprol XL 12.5 mg BID (4) DVT prophylaxis: - Lovenox Disposition: D/C home and can F/U with Dr. Clayton if needed to consider EUS Total Time Total Time Spent Total Time Spent (In Minutes): Greater than 30 minutes Discharge Plan Discharge Items Patient Disposition: Home - Self-Care Reason For Visit: PANCREATITIS Discharge Diagnosis: Pancreatitis Condition: Good Discharge Goals: Decrease discomfort, Diagnostic testing and Prevent disease Activity: Resume your previous activity Non-emergency contact: Primary Care Provider Call non-emergency contact if: you have any medication questions, your symptoms worsen and you have a fever Follow-up/Referrals: PCP,NO [Primary Care Provider] - Diet: Low Fat Addtl Provider Instructions: Pancreatitis: - This is a condition where the pancreas gets inflamed and can cause pain. This is your second episode of pancreatitis but unfortunately we do not have a direct cause - Commonly gallstones can cause this but your studies here did not reveal a stone that was stuck in the ducts; alcohol can trigger pancreatitis even if you do not drink everyday and this could be removed from the diet to see if this prevents this; sometimes there is not a good explanation of why you get this - The GI doctors recommend possibly getting an EUS which is a scope that performs and ultrasound that better looks at the pancreas. This can be arranged as an outpatient and is best done after pancreatitis is recovered so that the inflammation doesn't prevent seeing the pancreas better. - Recommend to follow a low fat diet for the next couple weeks - You may resume your normal activity but remember to rest and recover some as well. If your symptoms worsen please get checked out by a doctor. - You may use Tylenol or Ibuprofen for mild pain. Now that you are improving the pain should go away and if it increases again you should be checked out. Since you are these medications are okay to use with . However if you do have concerns you can always pump and dump your supply after your doses of pain medication. - At this time no new medications are needed. - You were seen by Dr. Clayton ([facility]) - There office number is [phone] and you can call and get a follow-up appointment as they may want to consider further testing. Prescriptions: Continued metoprolol succinate 25 mg Tablet Extended Release 24 Hr 12.5 mg PO BID RF: 0 buprenorphine HCl 8 mg tablet, sublingual 8 mg sublingual RF: 0 Stand-Alone Forms: Call Back Authorization, My [facility]/Other Patient Handouts: Pancreatitis, Pancreatitis Acute Dc Discharge Orders: Discharge Order (Routine); Ordered 09/01/18 Ordered By: Clara Jeffery Admission Data Admit Date/Time: 08/29/18 10:50 Attending Provider: Regan Lopes Admit Provider: Tez Patel Primary Care Provider: PCP,NO Other Providers: Juan Clayton ; Hermelindo Hawk Service: Medical Other Interventions: Discharge Summary Assessment (RN) Last Done: 09/01/18 18:21 Pending Studies at Discharge: No DC Date/Time DO NOT enter until pt leaves facility: 09/01/18 18:55 Supervising Physician Co-Signing Physician Notes Attending note: patient seen and examined with Clara Jeffery PA-C. I agree with her discharge summary. Patient feeling much better. No pain, tolerating diet, lipase down to normal. Ready for discharge. - Acute pancreatitis: second time she has had this no obvious etiology, perhaps because she drank more than normal at the beginning of the week resolved with bowel rest and aggressive IV hydration d/c to home, advance diet as tolerated
== END 2018-09-01 18:55 | disposition home or self-care (01) | DRG 440 ==
LOC: ED 07:11 → SUATTDRO 10:50 → 4E 10:50